=== PATIENT | female | born 1995 | race Hispanic/Latino ===

== ENCOUNTER 2017-04-12 05:38 | Inpatient (IN) | payer OTHER ==
[2017-04-12 06:33] VITALS: BMI 33.8
[2017-04-12] MEDS ORDERED: Ondansetron HCl/PF 4 MG/2 ML Vial IVP PRN ×3 (07:06→08:08)
[2017-04-12] MEDS ORDERED: Acetaminophen 500 MG TAB PO PRN (07:06)
[2017-04-12] MEDS ORDERED: Promethazine HCl 25 MG/ML VIAL IM PRN ×2 (07:06→08:08)
[2017-04-12] MEDS ORDERED: Bicitra 30 ML UDCUP PO SCH (07:15)
[2017-04-12] MEDS ORDERED: CEFAZOLIN/Water 2 GM/20 ML SYRINGE SLOW IVP SCH (07:15)
[2017-04-12 07:20] LABS: Hemoglobin 13.3 g/dL (12.0-16.0); Mean Corpuscular HGB CONC 34.4 g/dL (32.0-36.0); Mean Corpuscular Hemoglobin 31.2 pg (27.0-31.0); Mean Corpuscular Volume 90.7 fl (81.0-99.0); Mean Platelet Volume 8.1 fL (7.4-10.4); Platelet Count 244 thou/uL (130-400); RBC Distribution Width 12.2 % (11.5-14.5); Red Blood Cell (RBC) Count 4.27 mill/uL (4.20-5.40); White Blood Cell (WBC) Count 7.7 thou/uL (4.8-10.8)
[2017-04-12] MEDS ORDERED: Morphine PF 1 MG/ML SYR ONE (07:22)
[2017-04-12] MEDS ORDERED: Oxytocin 10 UNITS/ML VIAL ONE (07:22)
[2017-04-12] MEDS ORDERED: ePHEDrine/0.9% NaCl/PF SYRINGE 50 mg/10 ml ONE (07:22)
[2017-04-12 08:00] LABS: HBSAg Index 0.21 S/CO (0-0.99); Hep B Surf Ag Non-Reactive S/CO (NonReactive); Syphilis Antibody Nonreactive (Nonreactive); Syphilis Antibody Index 0.03 S/CO (<1.00 Non-Reactive)
[2017-04-12] MEDS ORDERED: Meperidine HCl/PF 25 MG/ML VIAL SLOW IVP PRN (08:07)
[2017-04-12] MEDS ORDERED: Eucerin (Mineral Oil/Petrolatum,White) 30 gm Jar TOP PRN (08:08)
[2017-04-12] MEDS ORDERED: Promethazine HCl 25 MG SUPP PR PRN (08:08)
[2017-04-12] MEDS ORDERED: Naloxone HCl 0.4 mg/ml Vial IV PRN (08:08)
[2017-04-12] MEDS ORDERED: diphenhydrAMINE 50 MG/ML VIAL IVP PRN (08:08)
[2017-04-12] MEDS ORDERED: Naloxone HCl 0.4 mg/ml Vial IVP PRN ×2 (08:08)
[2017-04-12] MEDS ORDERED: Ketorolac Tromethamine 30 MG/ML VIAL IVP PRN (08:08)
[2017-04-12] MEDS ORDERED: Communication Order-Pharmacy FS SCH (08:15)
[2017-04-12] MEDS ORDERED: Ketorolac Tromethamine 30 MG/ML VIAL IVP SCH (08:15)
--- NOTE | 2017-04-12 08:52 | PDOC.OPDEL ---
OB Operative/Delivery Note Delivery Dr/Surgeon: Tristin/Scarlet/Mickey Pre-Delivery Diagnosis: active labor, breech, ruptured membrane Procedure/Post Delivery Dx: primary low transverse CS Weeks gestation: 38 Anesthesia: spinal - Findings A Sex: female - 1 min: 7 - 5 min: 9 - Additional Findings/Plan Placenta delivered: spontaneous findings: low transverse hysterotomy without extension, normal uterus, normal tubes, normal ovaries Estimated blood loss: 600 ml Compilations/Other Findings: Called for delivery of Ms. Home walker 22 yo at 38 3/7 weeks with A1GDM who presented in active labor with SROM of MSAF and found to be breech presentation. R/B/A discussed with patient and she gave informed consent. 1` LTCS performed by Drs. Crow and Scarlet and supervised by me. Low transverse hysterotomy made knowing infant was lior breech with back up with anterior placenta. Breech delivery in typical fashion. Cord gas collected. 7/9. 2 layer hysterotomy closure. EBL 600ml. No immediate complications noted. See Dr. Barrera op report for full details.
[2017-04-12] MEDS ORDERED: Lanolin Ointment 7 GM TUBE TOP PRN (09:03)
[2017-04-12] MEDS ORDERED: LR / Pitocin 40 units/1000 ml 1,000 ML ONE (09:14)
[2017-04-12 11:53] LABS: Base Excess (BEa) -3.2 mEq/L (0 (+/-) 2.5)
--- NOTE | 2017-04-12 13:03 | OP-2 ---
DATE OF PROCEDURE: 04/12/2017 RESIDENT SURGEON: Ashley Crow M.D. DEMOGRAPHER SURGEON: Ki Novak M.D. ATTENDING SURGEON: Barbi Arevalo M.D. PROCEDURE: Primary low-transverse section. PREOPERATIVE DIAGNOSES: 1. Term intrauterine in active labor. 2. Breech presentation. 3. Gestational diabetes mellitus, diet controlled POSTOPERATIVE DIAGNOSES: 1. Term intrauterine , delivered. 2. Breech presentation. 3. Gestational diabetes mellitus, diet controlled. ANESTHESIA: Spinal. INDICATIONS: The patient is a 22-year-old G2, P1-0-0-1 at 38 and 3 weeks' gestation, who presented in active labor and found to be in breech presentation at 6 cm dilation. PROCEDURE IN DETAIL: After risks, benefits, and alternatives were explained to the patient, she gave informed consent. Preoperative antibiotics included cefazolin 2 grams IV. Patient was taken to the operating room and spinal anesthesia was initiated. She was placed in supine position with left tilt and prepped and draped in usual sterile fashion. A Pfannenstiel incision was made with scalpel and carried down to the level of the fascia, which was sharply nicked. The fascial cut was extended bilaterally with Cortes scissors. Inferior and superior edges of the cut fascial edges were elevated with Inés clamps and underlying rectus muscles were sharply and bluntly dissected free. The recti were divided digitally and retracted manually. The peritoneum was entered bluntly and retracted manually. Bladder blade was placed. Bladder flap was created with Metzenbaum scissors. Low transverse score was made with scalpel and the uterus was entered in the midline bluntly. Meconium-stained fluid was seen. Hysterotomy was extended manually. was noted to be breech and the right leg was delivered followed by the left leg. Following that , the infant's left arm and then right arm were delivered followed by delivery of the head with gentle traction on the 's zygomatic bones and fundal pressure. Mouth and nares were bulb suctioned. The cord was clamped and cut and grossly normal female infant was handed to the awaiting nurse. The cord blood was obtained and the cord segment was also obtained. Placenta was delivered with fundal pressure and gentle traction, found to be intact with 3- vessel cord and discarded. The uterus was externalized and endometrium was curetted with a dry lap. The bladder blade was replaced and the uterus was closed with a running locking #1 Vicryl followed by a running non-locking #1 Vicryl imbricating suture. Two additional sutures were placed on the hysterotomy to achieve hemostasis. Following this, hemostasis was noted. The abdomen was suctioned free of clots. The uterus was internalized and hysterotomy was again noted to be hemostatic. The peritoneum was closed with 2- 0 chromic suture in a running nonlocking fashion. The fascia was closed with a running nonlocking 0 PDS suture. The subcutaneous tissue was irrigated and there were no bleeders. The subcutaneous fat was approximated with 3 interrupted 2-0 plain gut sutures. The skin was approximated with subcuticular 4-0 suture and Dermabond and a pressure dressing was placed. All counts were correct. Patient tolerated procedure well and was taken to the recovery room in stable condition. ESTIMATED BLOOD LOSS: 600 mL. COMPLICATIONS: None. ASSESSMENT: Cord blood sent to lab for blood type. FINDINGS: Grossly normal female with Apgars of 7 and 9. Grossly normal placenta with 3-vessel cord discarded. DRAINS: Castro to gravity draining clear urine. MTDD
[2017-04-12] MEDS: Lactated Ringer's 1,000 ML IV SCH (18:00)
[2017-04-12] MEDS ORDERED: HYDROcodone/Acetaminophen 5/325 mg Tablet PO PRN (20:15)
[2017-04-12] MEDS: HYDROcodone/Acetaminophen 5/325 mg Tablet PO PRN (22:21)
[2017-04-12] MEDS: Ferrous Sulfate 325 MG TAB PO SCH (22:22)
[2017-04-12] MEDS: Docusate Calcium (SURFAK) 240 MG CAP PO SCH (22:26)
[2017-04-13] MEDS: Lactated Ringer's 1,000 ML IV SCH ×3 (04:15→15:46)
[2017-04-13] MEDS: Ibuprofen 800 MG TAB PO SCH ×3 (04:15→22:33)
[2017-04-13] MEDS: HYDROcodone/Acetaminophen 5/325 mg Tablet PO PRN ×4 (04:48→18:41)
[2017-04-13 05:46] LABS: Hemoglobin 12.1 g/dL (12.0-16.0); Mean Corpuscular HGB CONC 35.3 g/dL (32.0-36.0); Mean Corpuscular Hemoglobin 32.3 pg (27.0-31.0); Mean Corpuscular Volume 91.4 fl (81.0-99.0); Platelet Count 165 thou/uL (130-400); RBC Distribution Width 12.2 % (11.5-14.5); Red Blood Cell (RBC) Count 3.76 mill/uL (4.20-5.40); White Blood Cell (WBC) Count 7.5 thou/uL (4.8-10.8)
--- NOTE | 2017-04-13 07:38 | PDOC.PP ---
Post Progress Note Post Day #: 1 Subjective: Tolerating PO. Attempting to ambulate, but was dizzy upon standing. Discomfort in bladder 2/2 modi catheter. Mild tenderness c/s site. PO intake tolerated: yes Flatus: yes Ambulation: yes Vital Signs (12 hours) Temp Pulse Resp BP 04/13/17 04:30 98.4 F 65 18 97/52 L 04/13/17 04:00 98.4 F 65 18 04/13/17 00:00 98.7 F 93 18 04/12/17 20:00 98.7 F 93 18 Weight Weight 86.636 kg - Physical Examination General: NAD Cardiovascular: no m/r/g, RRR Respiratory: clear to auscultation bilaterally, non-labored breathing Abdominal: + bowel sounds, lochia (wnl), no distention, appropriately TTP Fundus firm & at: below umbilicus Extremities: negative homans (B) Skin: CS incision dry & intact, no rash Neurological: no gross focal deficits Psychiatric: A&Ox3, normal affect Result Diagrams: 04/13/17 05:17 Additional Labs: Post Labs Blood Type O POSITIVE 04/12/17 06:45 Hep Bs Antigen Non-Reactive S/CO (NonReactive) 04/12/17 06:45 (1) delivery indicated due to breech presentation Code(s): O32.1XX0 - MATERNAL CARE FOR BREECH PRESENTATION, UNSP Status: Acute Comment: 22 y/o at 38.3 wks that delivered a TAGA female via pLTCS due to lior breech presentation at 08:01 am on 04/12/17. - Routine care - Incision site clean, dry, intact - Encourage ambulation - Abdominal binder if discomfort when ambulating - Desires nexplanon - Guard Manager will be Dr. Ray - Anticipate discharge home tomorrow <Lynsey Mattson - Last Filed: 04/13/17 09:02> Vital Signs (12 hours) Temp Pulse Resp BP 04/13/17 08:30 98.2 F 68 20 04/13/17 07:39 98.2 F 68 20 98/50 L 04/13/17 04:30 98.4 F 65 18 97/52 L 04/13/17 04:00 98.4 F 65 18 04/13/17 00:00 98.7 F 93 18 Weight Weight 86.636 kg Result Diagrams: 04/13/17 05:17 Additional Labs: Post Labs Blood Type O POSITIVE 04/12/17 06:45 Hep Bs Antigen Non-Reactive S/CO (NonReactive) 04/12/17 06:45 <Manuelito Atkinson - Last Filed: 04/13/17 10:39> Attending Addendum - Attending Addendum I personally evaluated the patient and discussed the management with Dr. Voss. I agree with the History, Examination, Assessment and Plan documented above with any addition or exceptions noted below. Pain controlled. Elizabeth's P.o. no BM or Flatus yet. Afeb. Incision C/D/I. Continue routine postop care. Euglycemic. F/U glucose as OP. <Manuelito Atkinson - Last Filed: 04/13/17 10:39>
[2017-04-13] MEDS: Ferrous Sulfate 325 MG TAB PO SCH ×2 (08:56→22:34)
[2017-04-13] MEDS: Prenatal Vitamin 1 TAB PO SCH (09:00)
[2017-04-13] MEDS ORDERED: Adacel (T-DAP) 0.5 ML VIAL IM ONE (09:00)
[2017-04-13] MEDS: Docusate Calcium (SURFAK) 240 MG CAP PO SCH ×2 (09:00→22:33)
[2017-04-14] MEDS: Ibuprofen 800 MG TAB PO SCH (04:17)
[2017-04-14] MEDS: HYDROcodone/Acetaminophen 5/325 mg Tablet PO PRN ×3 (04:17→12:47)
[2017-04-14] MEDS: Lactated Ringer's 1,000 ML IV SCH ×2 (04:19→07:34)
--- NOTE | 2017-04-14 08:31 | PDOC.PP ---
Post Progress Note Post Day #: 2 Subjective: Patient doing well this AM. No significant overnight events. Pain well controlled with medications. Tolerating PO. Ambulating without difficulty. PO intake tolerated: yes Flatus: yes Ambulation: yes Vital Signs (12 hours) Temp Pulse Resp 04/14/17 04:00 98.5 F 68 18 04/14/17 00:00 98.5 F 68 18 Weight Weight 86.636 kg - Physical Examination General: NAD Cardiovascular: no m/r/g, RRR Respiratory: clear to auscultation bilaterally, non-labored breathing Abdominal: + bowel sounds, lochia (wnl), no distention, appropriately TTP Extremities: negative homans (B) Skin: CS incision dry & intact, no rash Neurological: no gross focal deficits Psychiatric: A&Ox3, normal affect Result Diagrams: 04/13/17 05:17 Additional Labs: Post Labs Blood Type O POSITIVE 04/12/17 06:45 Hep Bs Antigen Non-Reactive S/CO (NonReactive) 04/12/17 06:45 (1) delivery indicated due to breech presentation Code(s): O32.1XX0 - MATERNAL CARE FOR BREECH PRESENTATION, UNSP Status: Acute Comment: 22 y/o at 38.3 wks that delivered a TAGA female via pLTCS due to lior breech presentation at 08:01 am on 04/12/17. - Routine care - Incision site clean, dry, intact - Desires nexplanon as form of contraception PP - Consumer Credit Counselor will be Dr. Ray - Anticipate discharge home today - F/U [facility] in 2 weeks (2) GDM (gestational diabetes mellitus), class A1 Code(s): O24.410 - GESTATIONAL DIABETES MELLITUS IN , DIET CONTROLLED Status: Acute Comment: -Diet controlled -Recommend recheck BG at follow up visit (3) delivery delivered Code(s): O82 - ENCOUNTER FOR DELIVERY WITHOUT INDICATION Status: Acute
[2017-04-14] MEDS: Prenatal Vitamin 1 TAB PO SCH (08:47)
[2017-04-14] MEDS: Docusate Calcium (SURFAK) 240 MG CAP PO SCH (08:47)
[2017-04-14] MEDS: Ferrous Sulfate 325 MG TAB PO SCH (08:48)
[2017-04-14 11:15] VITALS: BP 106/68; TEMP 98.3
== END 2017-04-14 12:50 | disposition home or self-care (01) | DRG 766 ==
LOC: L&D/OP 05:38 → L&D 07:18 → 3SW 14:03
PROVIDERS: ADMIT Family Medicine; ATTEND Family Medicine
PROC: 10D00Z1 Extraction of Products of Conception, Low, Open Approach (ICD-10-PCS; principal; 2017-04-12)
DX: O32.1XX0 Maternal care for breech presentation, not applicable or unspecified (principal); O24.420 Gestational diabetes mellitus in childbirth, diet controlled; Z3A.38 38 weeks gestation of pregnancy; Z37.0 Single live birth
CPT/HCPCS: 36415; 51702; 76815; 82805; 85027; 86780; 86850; 86900; 86901; 87340; 99285; J1885; J2274; J2405; J2590